=== PATIENT | female | born 1970 | race Caucasian/White ===

== ENCOUNTER → 2017-03-26 | Outpatient (CLI) | payer BC ==
--- NOTE | 2017-03-31 08:50 | MM ---
Reason for exam: screening (asymptomatic). Last mammogram was performed 1 year ago. History: Patient is nulliparous. Family history of breast cancer in mother. Benign stereotactic core biopsy of the right breast, 2013. Taking hormonal contraceptives for 26 years beginning at age 19. Physical Findings: A clinical breast exam by your physician is recommended on an annual basis and results should be correlated with mammographic findings. MG 3D Screening Mammo W/Cad Bilateral CC and MLO view(s) were taken. Prior study comparison: April 02, 2016, bilateral MG 3d screening mammo w/cad. March 20, 2015, mammogram, performed at [facility]. March 16, 2015, mammogram, performed at [facility]. The breast tissue is heterogeneously dense. This may lower the sensitivity of mammography. No suspicious abnormality. Post biopsy change on the right breast. No significant changes when compared with prior studies. ASSESSMENT: Benign, BI-RAD 2 RECOMMENDATION: Routine screening mammogram of both breasts in 1 year.
== END | disposition home or self-care (01) ==
LOC: RADMAMWWP 13:10
PROVIDERS: ATTEND Family Medicine
DX: Z12.31 Encounter for screening mammogram for malignant neoplasm of breast (principal)
CPT/HCPCS: 77063; G0202

== ENCOUNTER → 2017-05-02 | Outpatient (CLI) | payer BC ==
[2017-05-02 18:57] LABS: Basophils # (A) 0.1 k/uL (0-0.2); Basophils % (A) 1 %; Eosinophils # (A) 0.2 k/uL (0-0.7); Eosinophils % (A) 2 %; HCT 45.8 % (34.0-46.0); HGB 14.7 gm/dL (11.4-16.0); Lymphocytes # (A) 2.5 k/uL (1.0-4.8); Lymphocytes % (A) 25 %; MCH 28.8 pg (25.0-35.0); MCV 89.9 fL (80.0-100.0); Mean Platelet Volume 8.4; Monocytes # (A) 0.4 k/uL (0-1.0); Monocytes % (A) 4 %; Neutrophils # (A) 6.7 k/uL (1.3-7.7); Neutrophils % (A) 67 %; Platelet Count 327 k/uL (150-450); RDW 13.3 % (11.5-15.5); WBC 10.1 k/uL (3.8-10.6)
[2017-05-02 19:02] LABS: ALT 27 U/L (9-52); AST 20 U/L (14-36); Albumin 4.3 g/dL (3.5-5.0); Alkaline Phosphatase 64 U/L (38-126); Anion Gap 12 mmol/L; Blood Urea Nitrogen 12 mg/dL (7-17); Calcium 9.6 mg/dL (8.4-10.2); Carbon Dioxide 25 mmol/L (22-30); Chloride 101 mmol/L (98-107); Cholesterol 206 mg/dL (<200); Glucose 94 mg/dL (74-99); HDL Cholesterol 50 mg/dL (40-60); LDL Cholesterol,Calculated 129 mg/dL (0-99); Potassium 4.6 mmol/L (3.5-5.1); Sodium 138 mmol/L (137-145); Total Bilirubin 0.4 mg/dL (0.2-1.3); Total Protein 7.9 g/dL (6.3-8.2); Triglycerides 133 mg/dL (<150)
[2017-05-02 19:14] LABS: T4, Free (Free Thyroxine) 1.12 ng/dL (0.78-2.19)
== END | disposition home or self-care (01) ==
LOC: MMGSC 12:04
PROVIDERS: ATTEND Family Medicine
DX: Z00.00 Encounter for general adult medical examination without abnormal findings (principal)
CPT/HCPCS: 36415; 80053; 80061; 84439; 84443; 85025

== ENCOUNTER → 2018-05-04 | Outpatient (CLI) | payer BC ==
--- NOTE | 2018-05-06 12:00 | MM ---
Reason for exam: screening (asymptomatic). Last mammogram was performed 1 year and 1 month ago. History: Patient is nulliparous. Family history of breast cancer in mother. Benign stereotactic core biopsy of the right breast, 2013. Taking hormonal contraceptives for 26 years beginning at age 19. Physical Findings: A clinical breast exam by your physician is recommended on an annual basis and results should be correlated with mammographic findings. MG 3D Screening Mammo W/Cad Bilateral CC and MLO view(s) were taken. Prior study comparison: March 26, 2017, bilateral MG 3d screening mammo w/cad. April 02, 2016, bilateral MG 3d screening mammo w/cad. The breast tissue is heterogeneously dense. This may lower the sensitivity of mammography. No suspicious abnormality. Right biopsy marker noted. Right upper inner quadrant middle depth focal asymmetry is stable. No significant changes when compared with prior studies. ASSESSMENT: Benign, BI-RAD 2 RECOMMENDATION: Routine screening mammogram of both breasts in 1 year.
== END | disposition home or self-care (01) ==
LOC: RADMAMWWP 08:18
PROVIDERS: ATTEND Family Medicine
DX: Z12.31 Encounter for screening mammogram for malignant neoplasm of breast (principal); Z80.3 Family history of malignant neoplasm of breast
CPT/HCPCS: 77063; 77067

== ENCOUNTER → 2019-05-20 | Outpatient (CLI) | payer BC ==
--- NOTE | 2019-05-21 11:20 | MM ---
Reason for exam: screening (asymptomatic). Last mammogram was performed 1 year and 1 month ago. History: Patient is nulliparous. Family history of breast cancer in mother. Benign stereotactic core biopsy of the right breast, 2013. Taking hormonal contraceptives for 26 years beginning at age 19. Physical Findings: A clinical breast exam by your physician is recommended on an annual basis and results should be correlated with mammographic findings. MG 3D Screening Mammo W/Cad Bilateral CC and MLO view(s) were taken. Prior study comparison: May 04, 2018, bilateral MG 3d screening mammo w/cad. March 26, 2017, bilateral MG 3d screening mammo w/cad. The breast tissue is heterogeneously dense. This may lower the sensitivity of mammography. There is a stable lobulated right upper inner quadrant mass at middle depth. Adjacent biopsy marker. No suspicious abnormality on the right breast. Left lateral distortion on CC 26/77 and focal asymmetry in the left upper outer quadrant 9cm from nipple on MLO 3D CC 43/91 and CC 46/77. ASSESSMENT: Incomplete: need additional imaging evaluation, BI-RAD 0 RECOMMENDATION: Special view mammogram of the left breast. If lesion persists on supplemental views, image directed ultrasound is recommended. [facility] will attempt to contact patient to return for supplemental views and ultrasound if indicated.
== END | disposition home or self-care (01) ==
LOC: RADMAMWWP 09:58
PROVIDERS: ATTEND Family Medicine
DX: Z12.31 Encounter for screening mammogram for malignant neoplasm of breast (principal); Z80.3 Family history of malignant neoplasm of breast
CPT/HCPCS: 77063; 77067

== ENCOUNTER → 2019-05-31 | Outpatient (CLI) | payer BC ==
--- NOTE | 2019-06-01 07:30 | MM ---
Reason for exam: additional evaluation requested from abnormal screening. Last mammogram was performed less than 1 month ago. History: Patient is nulliparous. Family history of breast cancer in mother. Benign stereotactic core biopsy of the right breast, 2013. Taking hormonal contraceptives for 26 years beginning at age 19. Physical Findings: Nurse did not find any significant physical abnormalities on exam. MG 3D Work Up W/Cad LT Spot compression CC, spot compression MLO, and LM view(s) were taken of the left breast. Prior study comparison: May 20, 2019, bilateral MG 3d screening mammo w/cad. May 04, 2018, bilateral MG 3d screening mammo w/cad. The breast tissue is heterogeneously dense. This may lower the sensitivity of mammography. The lateral distortion resolves however a 4mm focal asymmetry 9cm from nipple persists on additional views, although improves. These results were verbally communicated with the patient and result sheet given to the patient on 05/31/19. ASSESSMENT: Incomplete: need additional imaging evaluation, BI-RAD 0 RECOMMENDATION: Ultrasound of the left breast. (upper outer quadrant)
--- NOTE | 2019-06-01 07:31 | USB ---
Reason for exam: additional evaluation requested from abnormal screening. History: Patient is nulliparous. Family history of breast cancer in mother. Benign stereotactic core biopsy of the right breast, 2013. Taking hormonal contraceptives for 26 years beginning at age 19. US Breast Workup Limited LT Left limited breast ultrasound including focal area of concern, retroareolar and axilla demonstrates a 3 x 1 x 3mm oval, cystic lesion too small to characterize at 2 o'clock. These results were verbally communicated with the patient and result sheet given to the patient on 05/31/19. ASSESSMENT: Probably benign, BI-RAD 3 RECOMMENDATION: Follow-up diagnostic mammogram of the left breast in 6 months.
== END | disposition home or self-care (01) ==
LOC: RADMAMWWP 14:34
PROVIDERS: ATTEND Family Medicine
DX: R92.8 Other abnormal and inconclusive findings on diagnostic imaging of breast (principal)
CPT/HCPCS: 77061; 77065

== ENCOUNTER → 2020-03-23 | Outpatient (CLI) | payer BC ==
--- NOTE | 2020-03-23 13:22 | MM ---
Reason for exam: follow-up at short interval from prior study. Last mammogram was performed 10 months ago. History: Patient is nulliparous. Family history of breast cancer in mother. Benign stereotactic core biopsy of the right breast, 2013. Taking hormonal contraceptives for 26 years beginning at age 19. Physical Findings: Nurse did not find any significant physical abnormalities on exam. MG 3D Diag Mammo W/Cad LT CC and MLO view(s) were taken of the left breast. Prior study comparison: May 31, 2019, left breast MG 3d work up w/cad LT. May 20, 2019, bilateral MG 3d screening mammo w/cad. There are scattered fibroglandular densities. No significant new findings when compared with previous films. These results were verbally communicated with the patient and result sheet given to the patient on 03/23/20. ASSESSMENT: Benign, BI-RAD 2 RECOMMENDATION: Return to routine screening mammogram schedule for both breasts. Back on schedule for May 2020.
== END | disposition home or self-care (01) ==
LOC: RADMAMWWP 12:39
PROVIDERS: ATTEND Family Medicine
DX: R92.8 Other abnormal and inconclusive findings on diagnostic imaging of breast (principal)
CPT/HCPCS: 77061; 77065

== ENCOUNTER → 2021-04-11 | Outpatient (CLI) | payer BC ==
--- NOTE | 2021-04-12 14:14 | MM ---
Reason for exam: screening (asymptomatic). Last mammogram was performed 1 year and 1 month ago. History: Patient history of other cancer and is nulliparous. Family history of breast cancer in mother. Benign stereotactic core biopsy of the right breast, 2013. Taking hormonal contraceptives for 31 years beginning at age 19. Physical Findings: A clinical breast exam by your physician is recommended on an annual basis and results should be correlated with mammographic findings. MG 3D Screening Mammo W/Cad Bilateral CC and MLO view(s) were taken. Prior study comparison: March 23, 2020, left breast MG 3d diag mammo w/cad LT. May 20, 2019, bilateral MG 3d screening mammo w/cad. March 26, 2017, bilateral MG 3d screening mammo w/cad. There are scattered fibroglandular densities. Finding: There are multiple suspicious, varied size, circumscribed round, oval masses located 9-10 cm from the nipple in the 12-1 o'clock posterior position of the right breast consistent with possible cysts. New finding since March 23, 2020, May 20, 2019, and March 26, 2017. ASSESSMENT: Incomplete: need additional imaging evaluation, BI-RAD 0 RECOMMENDATION: Ultrasound of the right breast. [facility] will attempt to contact patient to return for ultrasound.
== END | disposition home or self-care (01) ==
LOC: RADMAMWWP 08:15
PROVIDERS: ATTEND Family Medicine
DX: Z12.31 Encounter for screening mammogram for malignant neoplasm of breast (principal); Z80.3 Family history of malignant neoplasm of breast
CPT/HCPCS: 77063; 77067

== ENCOUNTER → 2021-05-01 | Outpatient (CLI) | payer BC ==
--- NOTE | 2021-05-01 14:03 | USB ---
Reason for exam: additional evaluation requested from abnormal screening. History: Patient has history of other cancer at age 50 and is nulliparous. Family history of breast cancer in mother at age 60. Benign stereotactic core biopsy of the right breast, 2013. Taking hormonal contraceptives for 31 years beginning at age 19. Physical Findings: Nurse did not find any significant physical abnormalities on exam. US Breast Workup RT Right complete breast ultrasound includes all four quadrants, the retroareolar region and axilla. Finding demonstrates a 0.5 x 0.3 x 0.4cm cystic lesion at 1 o'clock and a 0.5 x 0.4 x 0.5cm cystic lesion at 1 o'clock. May be mammographic correlate. Short interval follow up recommended. These results were verbally communicated with the patient and result sheet given to the patient on 05/01/21. ASSESSMENT: Probably benign, BI-RAD 3 RECOMMENDATION: Follow-up diagnostic mammogram of the right breast in 6 months.
== END | disposition home or self-care (01) ==
LOC: RADUSWWP 12:49
PROVIDERS: ATTEND Family Medicine
DX: N60.01 Solitary cyst of right breast (principal); Z80.3 Family history of malignant neoplasm of breast

== ENCOUNTER → 2022-04-19 | Outpatient (CLI) | payer BC ==
--- NOTE | 2022-04-22 13:06 | MM ---
Reason for Exam: Screening (asymptomatic). Last screening mammogram was performed 12 month(s) ago. Patient History: Menarche at age 18. Patient has no children. Currently using Hormonal Contraceptives, beginning at age 19 for 31 years. 2013, Benign Stereotactic Core Biopsy on the right side. Mother had breast cancer, age 60. Risk Values: Loreto 5 year model risk: 2.0%. NCI Lifetime model risk: 18.0%. Prior Study Comparison: 05/31/2019 Left Diagnostic Mammogram, [facility]. 03/23/2020 Left Diagnostic Mammogram, [facility]. 04/11/2021 Bilateral Screening Mammogram, [facility]. Tissue Density: The breast tissue is heterogeneously dense. This may lower the sensitivity of mammography. Findings: Analyzed By CAD. Chronic nodularity is within the right breast. This was present previously and stable. Left breast appears stable. No suspicious groups of microcalcifications, spiculated or lobular masses, architectural distortion or other secondary signs of malignancy are mammographically apparent. Overall Assessment: Benign, BI-RAD 2 Management: Screening Mammogram of both breasts in 1 year. A negative mammogram report should not preclude additional follow up of suspicious palpable abnormalities. Patient should continue monthly self breast exam. A clinical breast exam by your physician is recommended on an annual basis and results should be correlated with mammographic findings. Electronically signed and approved by: Bertrand Tovar D.O. Radiologis
== END | disposition home or self-care (01) ==
LOC: RADMAMWWP 14:51
PROVIDERS: ATTEND Family Medicine
DX: Z12.31 Encounter for screening mammogram for malignant neoplasm of breast (principal); Z80.3 Family history of malignant neoplasm of breast
CPT/HCPCS: 77063; 77067

== ENCOUNTER → 2023-05-21 | Outpatient (CLI) | payer BC ==
--- NOTE | 2023-05-22 20:08 | MM ---
Reason for Exam: Screening (asymptomatic). Last mammogram was performed 1 year(s) and 1 month(s) ago. Patient History: Menarche at age 18. Patient has no children. Currently using Hormonal Contraceptives, beginning at age 19 for 31 years. 2013, Benign Stereotactic Core Biopsy on the right side. Mother had breast cancer, age 60. Risk Values: Loreto 5 year model risk: 2.1%. NCI Lifetime model risk: 17.7%. Prior Study Comparison: 03/23/2020 Left Diagnostic Mammogram, [facility]. 04/11/2021 Bilateral Screening Mammogram, [facility]. 04/19/2022 Bilateral MG 3D screening mammo w/cad, [facility]. Tissue Density: There are scattered fibroglandular densities. Findings: Analyzed By CAD. Chronic nodularity on the right. Microclip right breast from prior biopsy. Additional unchanged areas of asymmetric density on the right. There is no suspicious group of microcalcifications or new suspicious mass in either breast. Overall Assessment: Benign, BI-RAD 2 Management: Screening Mammogram of both breasts in 1 year. . Patient should continue monthly self-breast exams. A clinical breast exam by your physician is recommended on an annual basis. This exam should not preclude additional follow-up of suspicious palpable abnormalities. Note on Loreto scores and lifetime risk: 1. A Loreto score greater than 3% is considered moderate risk. If this is the case, consider specialist referral to assess eligibility for a risk reducing agent. 2. If overall lifetime risk for the development of breast cancer is 20% or higher, the patient may qualify for future screening with alternating mammogram and breast MRI. Electronically signed and approved by: Jamel Rueda M.D. Radiologist
== END | disposition home or self-care (01) ==
LOC: RADMAMWWP 08:08
PROVIDERS: ATTEND Family Medicine
DX: Z12.31 Encounter for screening mammogram for malignant neoplasm of breast (principal); Z80.3 Family history of malignant neoplasm of breast
CPT/HCPCS: 77063; 77067

== ENCOUNTER → 2024-05-26 | Outpatient (CLI) | payer BC ==
--- NOTE | 2024-05-26 09:41 | MM ---
Reason for Exam: Screening (asymptomatic). Last screening mammogram was performed 12 month(s) ago. Patient History: Menarche at age 18. Patient has no children. Other cancer, age 53. Currently using Hormonal Contraceptives, beginning at age 19 for 31 years. 2014, Benign Stereotactic Core Biopsy on the right side. Mother had breast cancer, age 60. Risk Values: Loreto 5 year model risk: 2.2%. NCI Lifetime model risk: 17.5%. Prior Study Comparison: 04/11/2021 Bilateral Screening Mammogram, [facility]. 04/19/2022 Bilateral MG 3D screening mammo w/cad, [facility]. 05/21/2023 Bilateral MG 3D screening mammo w/cad, [facility]. Tissue Density: There are scattered areas of fibroglandular density. Findings: Analyzed By CAD. Unchanged bilateral areas of asymmetric density in chronic nodularity on the right. Microclip right breast from prior biopsy. There is no suspicious group of microcalcifications or new suspicious mass in either breast. Overall Assessment: Benign, BI-RAD 2 Management: Screening Mammogram of both breasts in 1 year. Patient should continue monthly self-breast exams. A clinical breast exam by your physician is recommended on an annual basis. This exam should not preclude additional follow-up of suspicious palpable abnormalities. Note on Loreto scores and lifetime risk: 1. A Loreto score greater than 3% is considered moderate risk. If this is the case, consider specialist referral to assess eligibility for a risk reducing agent. 2. If overall lifetime risk for the development of breast cancer is 20% or higher, the patient may qualify for future screening with alternating mammogram and breast MRI. [facility], , 05/26/2024 9:38 AM. Electronically signed and approved by: Jamel Rueda M.D. Radiologist
== END | disposition home or self-care (01) ==
LOC: RADMAMWWP 07:49
PROVIDERS: ATTEND Family Medicine
DX: Z12.31 Encounter for screening mammogram for malignant neoplasm of breast (principal); Z80.3 Family history of malignant neoplasm of breast; R92.323 Mammographic fibroglandular density, bilateral breasts; Z98.82 Breast implant status
CPT/HCPCS: 77063; 77067